=== PATIENT | male | born 1990 | race Caucasian/White ===

== ENCOUNTER 2020-07-25 11:57 | Emergency (ER) | payer SELFPAY ==
[2020-07-25] MEDS ORDERED: predniSONE 20 MG TAB PO ONE (12:28)
--- NOTE | 2020-07-25 12:32 | ED.PDOC ---
History of Present Illness - General Time Seen by Provider: 07/25/20 12:28 Source: patient Exam Limitations: no limitations - History of Present Illness Initial Comments: The patient is a 30-year-old male presented emergency room secondary to left ear pain. He has had a history of recurrent episodes of acute otitis externa. He does have some mild anterior left cervical lymphadenopathy as well. Is been having pain in the ear for the last week. Mild decreased hearing. Again he has had this before. No pain in the right ear. No real sore throat or runny nose. No fever. No nausea vomiting. Timing/Duration: 1 week Severity: moderate Improving Factors: nothing Worsening Factors: nothing Associated Symptoms: denies symptoms Home Medications: Ambulatory Orders Ciprofloxacin [Cipro] 500 mg PO BID #14 tab 07/25/20 Ki/Poly/Hc Otic Susp [Cortisporin Otic Susp] 4 drop LEFT_EAR Q6H #10 days 07/25/20 Review of Systems - Review of Systems Constitutional: States: malaise EENTM: States: ear pain Respiratory: States: no symptoms reported Cardiology: States: no symptoms reported Gastrointestinal/Abdominal: States: no symptoms reported Genitourinary: States: no symptoms reported Musculoskeletal: States: no symptoms reported Skin: States: no symptoms reported Neurological: States: no symptoms reported Endocrine: States: no symptoms reported All other Systems: No Change from Baseline Physical Exam - Physical Exam General Appearance: Alert, Comfortable, No apparent distress Eye Exam: bilateral normal Ears, Nose, Throat: hearing grossly normal, other - Left ear canal almost swollen closed. Unable to visualize tympanic membrane with any fidelity. Neck: full range of motion, other - Mild left anterior cervical lymphadenopathy. 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 The patient is going to be placed on Cortisporin otic drops for the next 10 days and oral ciprofloxacin as well. He was given 1 dose of oral prednisone here. He can take 2 Aleve twice daily for the next 3 to 4 days as well. He does need to follow back up with his primary care doctor in 10 days to 2 weeks for an evaluation once the swelling has gone down. ER warnings are given. [email or web address] [email or web address] [id number] Departure - Departure Clinical Impression: Anterior cervical lymphadenopathy Acute otitis externa Qualifiers: Otitis externa type: unspecified type Laterality: left Qualified Code(s): H60.502 - Unspecified acute noninfective otitis externa, left ear Disposition: Discharge to Home or Self Care Condition: Fair Instructions: Outer Ear Infection (DC) Diet: regular diet Activity: increase activity as tolerated Prescriptions: Ciprofloxacin [Cipro] 500 mg PO BID #14 tab Ki/Poly/Hc Otic Susp [Cortisporin Otic Susp] 4 drop LEFT_EAR Q6H #10 days Home Medications: Ambulatory Orders Ciprofloxacin [Cipro] 500 mg PO BID #14 tab 07/25/20 Ki/Poly/Hc Otic Susp [Cortisporin Otic Susp] 4 drop LEFT_EAR Q6H #10 days 07/25/20 Additional Instructions: The patient is a 30-year-old male with left-sided acute otitis externa and lymphadenopathy. The patient is going to be placed on Cortisporin otic drops for the next 10 days and oral ciprofloxacin as well. He was given 1 dose of oral prednisone here. He can take 2 Aleve twice daily for the next 3 to 4 days as well. He does need to follow back up with his primary care doctor in 10 days to 2 weeks for an evaluation once the swelling has gone down. ER warnings are given.
[2020-07-25 12:34] VITALS: TEMP 98.2
[2020-07-25 12:54] VITALS: BP 159/98; O2SAT 99
== END 2020-07-25 12:50 | disposition home or self-care (01) ==
LOC: ER 11:57
DX: H60.502 Unspecified acute noninfective otitis externa, left ear (principal); R59.0 Localized enlarged lymph nodes